=== PATIENT | female | born 1995 | race Caucasian/White ===

== ENCOUNTER 2017-03-26 17:06 | Observation (INO) | payer OTHER ==
[2017-03-26] MEDS ORDERED: Albuterol Sulfate 2.5 mg/0.5 ml Neb ONE ×2 (17:20→17:21)
[2017-03-26] MEDS ORDERED: Magnesium Sulfate 2 GM/NS 0.9% 50 ML BAG ONE (17:36)
[2017-03-26] MEDS ORDERED: methylPREDNISolone Sod Succ/PF 125 MG/2 ML VIAL ONE (17:36)
[2017-03-26 17:37] LABS: #Basophils 0.1 thou/uL (0.0-0.2); #Eosinphils 0.6 thou/uL (0.0-0.7); #Lymphocytes 0.9 thou/uL (1.20-3.40); #Monocytes 0.3 thou/uL (0.11-0.59); #Neutrophils 6.3 thou/uL (1.40-6.50); %Basophils 0.7 % (0.0-1.0); %Eosinophils 7.3 % (0.0-10.0); %Lymphocytes 10.4 % (21.0-51.0); %Monocytes 4.1 % (0.0-10.0); Hematocrit 38.5 % (36.0-47.0); Mean Platelet Volume 7.9 fL (7.4-10.4); Red Blood Cell (RBC) Count 4.25 mill/uL (4.20-5.40); White Blood Cell (WBC) Count 8.1 thou/uL (4.8-10.8)
[2017-03-26 17:51] LABS: Anion Gap 16 mmol/L (10-20); BUN (Urea Nitrogen) 8 mg/dL (7.0-18.7); Calc. Creatinine Clearance 0 mL/min (70-130); Calcium 9.5 mg/dL (7.8-10.44); Carbon Dioxide 21 mmol/L (22-29); Chloride 107 mmol/L (98-107); Estimated GFR-MDRD 86
[2017-03-26] MEDS ORDERED: Diazepam 10 MG/2 ML SYRINGE ONE (18:46)
--- NOTE | 2017-03-26 19:17 | RAD ---
PORTABLE AP CHEST: History: Shortness of breath, dyspnea. Date: 03-26-17 Comparison: 04-18-16 FINDINGS: AP chest demonstrates the lungs to be well aerated. No evidence of active intrathoracic disease seen . No evidence of effusions, pneumonia, or pneumothorax seen. IMPRESSION: Unremarkable AP chest. POS: [facility]
[2017-03-26] MEDS ORDERED: Sodium Chloride 0.9% 1,000 ML IV SCH (19:23)
[2017-03-26 19:30] VITALS: BMI 23.8
[2017-03-26] MEDS ORDERED: Senokot 8.6 MG TAB PO PRN (21:18)
[2017-03-26] MEDS ORDERED: Loperamide HCl 2 MG CAP PO PRN (21:18)
[2017-03-26] MEDS ORDERED: Ondansetron ODT 4 MG TAB PO PRN (21:18)
[2017-03-26] MEDS ORDERED: Zolpidem Tartrate 5 MG TAB PO PRN (21:18)
[2017-03-26] MEDS ORDERED: Milk Of Magnesia 30 ML UDCUP PO PRN (21:18)
[2017-03-26] MEDS ORDERED: Acetaminophen 325 MG TAB PO PRN (21:18)
[2017-03-26] MEDS ORDERED: Mag-Al 1200 mg/1200 mg/30 ML UDCUP PO PRN (21:18)
[2017-03-26] MEDS ORDERED: HYDROcodone/Acetaminophen 5/325 mg Tablet PO PRN (21:18)
[2017-03-26] MEDS ORDERED: Ondansetron HCl/PF 4 MG/2 ML Vial IVP PRN (21:18)
[2017-03-26] MEDS ORDERED: Benzonatate 100 MG CAP PO PRN (21:20)
[2017-03-26] MEDS ORDERED: Montelukast Sodium 10 mg Tablet PO SCH (23:00)
--- NOTE | 2017-03-27 00:07 | HP ---
PRIMARY CARE PHYSICIAN: [facility]. REASON FOR ADMISSION: Acute asthma exacerbation. HISTORY OF PRESENT ILLNESS: A 21-year-old female, who has underlying history of asthma, gastroesoph ageal reflux disease, who came to the emergency room for evaluation of increasing shortness of breat h. Patient reports that for the last one week, she is feeling increasing shortness of breath. She has underlying history of asthma. She was requiring more frequent use of her inhaler. She was not feeling better. She went to Urgent Care today and patient was given DuoNeb therapy and prednisone, and she was discharged from Urgent Care. After going home, patient was not feeling any more better and that is why she went to [facility]. Over there, the patient appeared in mild to moderate respiratory distress. Subsequently, patient wa s transferred to our hospital for admission. At [facility], patient was g iven Solu-Medrol 125 mg, magnesium sulfate 2 grams, IV fluid, and albuterol nebulization. Even afte r that, the patient was wheezing in her both lung [place] and she was not able to talk in full senten royce and that is why the ER physician decided to admit in hospital. When I saw this patient, the patient was still appeared having shortness of breath. Whenever she wa s talking to me at that time, her oxygen saturation was dropping to 85%-86%. She was not using her accessory muscles of respiration, but patient was appeared mildly tachypneic. The patient reports that she has an allergy and she is getting allergy shot weekly. She also had a flu shot today. Patient denies any fever or chills. She denies any cough productive of yellowish s putum, but she has dry cough and she is feeling chest tightness with a shortness of breath. She den ies any sick exposures. She denies any recent travel. She denies any hemoptysis. She denies any l ower extremity edema or calf tenderness. She denies any immobilization. PAST MEDICAL HISTORY: Gastroesophageal reflux disease, asthma. PAST PSYCHIATRIC HISTORY: Anxiety/depression. ALLERGIES: No known drug allergy. CURRENT HOME MEDICATIONS: Dexilant 60 mg p.o. daily, amitriptyline 10 mg p.o. daily and bedtime, Fl onase nasal spray daily, Dulera 2 puffs inhalation daily, ProAir HFA 1 puff inhalation q.4 hourly p. r.n. FAMILY HISTORY: No strong family history of premature coronary artery disease, stroke, or cancer. PAST SURGICAL HISTORY: Left leg surgery. SOCIAL HISTORY: Patient drinks alcohol socially twice a month. She denies any smoking. She denies any other illicit drug abuse. ADDITIONAL INFORMATION: Patient is not a steroid dependent. Patient never had hospitalization for asthma. She never had any intubation before. REVIEW OF SYSTEMS: The following complete review of systems was negative, unless otherwise mentione d in the HPI or below: Constitutional: Weight loss or gain, ability to conduct usual activities. Skin: Rash, itching. Eyes: Double vision, pain. ENT/Mouth: Nose bleeding, neck stiffness, pain, tenderness. Cardiovascular: Palpitations, dyspnea on exertion, orthopnea. Respiratory: Shortnes s of breath, wheezing, cough, hemoptysis, fever or night sweats. Gastrointestinal: Poor appetite, abdominal pain, heartburn, nausea, vomiting, constipation, or diarrhea. Genitourinary: Urgency, fr equency, dysuria, nocturia. Musculoskeletal: Pain, swelling. Neurologic/Psychiatric: Anxiety, de pression. Allergy/Immunologic: Skin rash, bleeding tendency. EMERGENCY ROOM COURSE: Patient is given Solu-Medrol 125 mg, magnesium sulfate 2 grams, IV fluid, an d albuterol nebulization. PHYSICAL EXAMINATION: VITAL SIGNS: On arrival, blood pressure 149/88, pulse 119, respiratory rate 24, temperature 98.2, s aturation 98% on room air. Weight 68 kilograms. GENERAL: Patient is currently alert, awake, no obvious acute distress. HEENT: Head: Normocephalic, atraumatic. Eyes: Pupils round, reactive to light. Extraocular musc les intact. ENT: Oropharynx within normal limits. Moist mucous membranes. No oral lesions. No pharyngeal wade thema, no exudate. NECK: Supple, no JVD, no thyromegaly. Range of motion is normal. LUNGS: Bilateral end expiratory wheezing heard. No rales. CARDIAC: S1, S2 regular, tachycardia, no murmur, no gallop, no rub. ABDOMEN: Soft, bowel sounds present, nontender, nondistended. No organomegaly, no mass, no suprapu bic tenderness. BACK: Unremarkable, no CVA tenderness. EXTREMITIES: Upper extremity passive movement of all joints are normal. Lower extremities: No ila ma, no calf tenderness. NEUROLOGIC: Nonfocal examination. Patient is moving all four limbs, plantar bilateral flexor. PSYCHIATRIC: Normal affect. SIGNIFICANT LABS: Chest x-ray based on my review, no acute cardiopulmonary process. CBC: WBC 8.1, hemoglobin 13.1, platelet 226. BMP: Sodium 140, potassium 3.5, chloride 107, carbon dioxide 21, B UN 8, creatinine 0.84, glucose 124, calcium 9.5. ASSESSMENT AND PLAN: 1. Acute asthma exacerbation. Patient has failed outpatient therapy. This patient has gradually w orsening dyspnea with wheezing with a history of asthma. The patient is also intermittently hypoxic . She will require admission. We will keep as observation status for now. We will treat her with the DuoNeb every 4 hourly, Dulera 2 puffs inhalation b.i.d., Solu-Medrol 40 mg IV q.6 hourly, Tessal on 100 mg t.i.d. p.r.n., Singulair 10 mg p.o. daily. Oxygen to keep saturation above 92%, Flonase n liz spray b.i.d. We will monitor clinical response. 2. Anxiety/Depression. We will continue Elavil 10 mg in the morning and 20 mg at bedtime. 3. Gastroesophageal reflux disease. We will continue Pepcid 20 mg p.o. b.i.d. 4. Hypoxia. We will give her oxygen to keep saturation above 92%, most likely related with underly ing asthma. 5. Deep venous thrombosis prophylaxis not needed because we are expecting discharge in 24 hours. 6. Gastrointestinal prophylaxis, Pepcid 20 mg p.o. b.i.d. 7. Code status: The patient is FULL CODE. Patient does not have any surrogate decision maker. Disposition plan based on clinical course. If patient's condition does not improve and her oxygen s till remains low, then we can consider changing to inpatient status.
[2017-03-27 05:04] LABS: #Lymphocytes 0.5 thou/uL (1.20-3.40); %Eosinophils 0.2 % (0.0-10.0); %Lymphocytes 11.3 % (21.0-51.0); %Monocytes 0.6 % (0.0-10.0); Hematocrit 38.3 % (36.0-47.0); Mean Platelet Volume 8.2 fL (7.4-10.4); Red Blood Cell (RBC) Count 4.14 mill/uL (4.20-5.40); White Blood Cell (WBC) Count 4.5 thou/uL (4.8-10.8)
[2017-03-27 05:13] LABS: Anion Gap 13 mmol/L (10-20); BUN (Urea Nitrogen) 6 mg/dL (7.0-18.7); Calc. Creatinine Clearance 121 mL/min (70-130); Calcium 9.3 mg/dL (7.8-10.44); Carbon Dioxide 18 mmol/L (22-29); Chloride 108 mmol/L (98-107); Estimated GFR-MDRD Greater than 90
[2017-03-27] MEDS ORDERED: methylPREDNISolone Sod Succ/PF 125 MG/2 ML VIAL IVP SCH (05:30)
[2017-03-27] MEDS: Mometasone/Formoterol 120 PUFF INHALER INH SCH ×2 (07:33→18:02)
[2017-03-27] MEDS ORDERED: Famotidine 20 MG TAB PO SCH (09:00)
[2017-03-27] MEDS ORDERED: Fluticasone Propionate Nasal Spray 16 gm Bottle NASAL SCH (09:00)
[2017-03-27] MEDS ORDERED: FLU VACC QS2017-18 36 mo. & older 0.5 ML SYRINGE IM ONE (09:00)
[2017-03-27] MEDS ORDERED: Amitriptyline HCl 10 MG TAB PO SCH ×2 (09:00→21:00)
--- NOTE | 2017-03-27 09:03 | PDOC.PN ---
- Subjective Encounter Start Date: 03/27/17 Encounter Start Time: 09:02 Patient seen at bedside. She states her breathing has improved dramatically, but still feels SOB. Afebrile overnight. - Objective Resuscitation Status: Resuscitation Status FULL:Full Resuscitation Vital Signs & Weight: Vital Signs (12 hours) Temp Pulse Resp BP Pulse Ox 03/27/17 07:50 98 F 75 16 03/27/17 07:33 16 96 03/27/17 07:32 82 16 96 03/27/17 07:17 97.6 F 89 16 128/68 98 03/27/17 05:01 22 H 94 L 03/27/17 04:35 97.3 F L 99 22 H 117/69 94 L 03/27/17 03:16 98 03/27/17 03:15 21 H 98 03/27/17 01:01 22 H 03/27/17 00:03 98.7 F 95 20 121/59 L 99 03/26/17 22:49 96 03/26/17 22:27 22 H 03/26/17 22:11 20 94 L 03/26/17 21:27 90 21 H 95 03/26/17 21:18 24 H 95 Weight Weight 148 lb 1.6 oz I&O: 03/26/17 03/27/17 03/28/17 06:59 06:59 06:59 Intake Total 721 Balance 721 Result Diagrams: 03/27/17 04:38 03/27/17 04:38 Phys Exam - Physical Examination Constitutional: NAD HEENT: moist MMs Neck: no JVD Expiratory wheezing, no accessory muscle use Cardiovascular: RRR Gastrointestinal: soft Musculoskeletal: pulses present Neurological: moves all 4 limbs Psychiatric: normal affect, A&O x 3 Dx/Plan (1) Asthma exacerbation Code(s): J45.901 - UNSPECIFIED ASTHMA WITH (ACUTE) EXACERBATION Status: Acute (2) GERD (gastroesophageal reflux disease) Code(s): K21.9 - GASTRO-ESOPHAGEAL REFLUX DISEASE WITHOUT ESOPHAGITIS Status: Acute (3) Anxiety Code(s): F41.9 - ANXIETY DISORDER, UNSPECIFIED Status: Acute - Plan cont current plan of care, plan discussed w/ family, respiratory therapy, out of bed/ambulate, DVT proph w/SCDs * Continue with IV solumedrol. * Aggressive Duoneb therapy * Supplemental O2 * Will hold off on antibiotic therapy at this time, as no focus of infection. * Given her presentation, and continued SOB, she will require further monitoring.
[2017-03-27 16:22] VITALS: BP 130/70; TEMP 98.5
--- NOTE | 2017-03-27 20:23 | DIS ---
DATE OF ADMISSION: 03/26/2017 DATE OF DISCHARGE: 03/27/2017 DISCHARGE DISPOSITION: Home. DISCHARGE FOLLOWUP: With Dr. Duenas, Drilling Fluids Specialist. DISCHARGE DIAGNOSES: 1. Asthma exacerbation. 2. Gastroesophageal reflux disease. 3. Anxiety. DISCHARGE MEDICATIONS: 1. ProAir 1 puff inhaled q.4 hours p.r.n. 2. Elavil 10 mg p.o. daily. 3. Elavil 20 mg p.o. at bedtime. 4. estradiol 1 tablet p.o. daily. 5. Dexilant 60 mg p.o. daily. 6. Dulera 2 puffs inhaled daily. 7. Prednisone taper. Please note the patient also has DuoNeb with nebulizer solution at home already. INPATIENT CONSULTANTS: None. INPATIENT PROCEDURES: None. INPATIENT RADIOGRAPHIC EXAMINATIONS: Chest x-ray, which revealed no evidence of effusion, pneumonia , or pneumothorax. BRIEF HOSPITAL COURSE: Ms. Bel Bowie is a 21-year-old female, who has underlying history of asth ma, who presented to the emergency room complaining of shortness of breath from 1 week. She states that she was seen at the urgent care setting and was given DuoNeb and prednisone and subsequently se nt home. After going home, the patient did not feel any improvement and presented to the emergency room. In the emergency room, she was noted to be hypoxic while speaking. Clinically, she appeared to be in an asthma exacerbation. She was then subsequently placed in the observation onto the medic al floor. She was given intravenous steroids as well as aggressive DuoNeb therapy. Her clinical pr ogress improved dramatically. Initially, she was on oxygen; however, this was gradually weaned off. Her O2 saturations have been in the mid 90. She did require IV Solu-Medrol, which is gradually tr ansitioned over to prednisone. Within the course of 24 hours, the patient has felt much better. Th ere is no evidence of accessory muscle use. She is not tachypneic. The patient states she feels ba ck to her baseline. She is no longer wheezing and has been ambulating in the halls without any dist ress. I spoke with the patient, she states she feels much better. Her vital signs are improved saumyaangella lemus and she is clinically appropriate for discharge home. I have explained to her at length t hat she feels any recurring symptoms including shortness of breath, tachypnea, or feels any wheezing or chest tightness she should call her analog ic design architect or return back to urgent care or come back to the ER for further treatment. The patient understands all this appropriate education has been given. S he also states that she will make an appointment with her analog ic design architect, Dr. Duenas once she is discharge d. The patient is doing much better. She is clinically appropriate for discharge. There is no rajan silvia having any kind of respiratory distress and will be discharged home later today in stable condit ion with a taper above. DISCHARGE DIET: Regular. ACTIVITY: As tolerated. RESTRICTIONS: None. ALLERGIES: No known drug allergies. DISCHARGE PLAN: Follow up with Dr. Duenas as an outpatient. I have explained to the patient that she experiences any further respiratory distress, shortness of breath, or wheezing that she should return back to the emergency room. She understands and this is also explained to family members at bedside. She will be discharged home today in stable condition. Total discharge time 33 minutes.
[2017-03-27] MEDS ORDERED: Montelukast Sodium 10 mg Tablet PO SCH (21:00)
[2017-03-28] MEDS ORDERED: predniSONE 20 MG TAB PO SCH (08:00)
== END 2017-03-27 18:17 | disposition home or self-care (01) ==
LOC: SCSER 17:06 → 2SW 19:25
PROVIDERS: ADMIT Internal Medicine Infectious Disease; ATTEND Internal Medicine Infectious Disease
DX: J45.901 Unspecified asthma with (acute) exacerbation (principal); K21.9 Gastro-esophageal reflux disease without esophagitis; F41.9 Anxiety disorder, unspecified; R09.02 Hypoxemia; F32.9 Major depressive disorder, single episode, unspecified; Z79.3 Long term (current) use of hormonal contraceptives; Z79.51 Long term (current) use of inhaled steroids; Z79.52 Long term (current) use of systemic steroids; Z79.899 Other long term (current) drug therapy; Z98.890 Other specified postprocedural states
CPT/HCPCS: 36415; 71010; 80048; 85025; 90471; 90682; 94640; 96365; 96375; 96376; G0008; G0378; J2920; J2930; J3360; J3475; J7611; J7620; Q2036